=== PATIENT | female | born 1970 | race African-American/Black ===

== ENCOUNTER 2018-11-30 19:52 | Emergency (ER) | payer MEDICAID ==
[~2018-11-30] VITALS: Ht 175.3 cm; Wt 53.2 kg
[2018-11-30 20:22] VITALS: Ht 175.3 cm; Wt 53.2 kg
[2018-11-30] MEDS ORDERED: ATIVAN1 MG PO (20:24)
[2018-11-30] MEDS ORDERED: MEGACE40 MG PO (20:24)
[2018-11-30] MEDS ORDERED: REMERON30 MG PO (20:24)
[2018-11-30] MEDS ORDERED: TAMIFLU75 MG PO (21:58)
[2018-11-30] MEDS ORDERED: MUCINEX DM ER1 EAC1 PO (21:59)
[2018-11-30 22:08] VITALS: BP 122/70
== END 2018-11-30 22:08 | disposition home or self-care (01) ==
LOC: D.ER 19:52
DX: J11.1 Influenza due to unidentified influenza virus with other respiratory manifestations (principal); M79.601 Pain in right arm; R68.83 Chills (without fever)